=== PATIENT | female | born 2000 | race Caucasian/White ===

== ENCOUNTER 2020-08-11 15:49 | Observation (INO) | payer MEDICAID ==
[~2020-08-11] VITALS: Ht 162.6 cm; Wt 100.5 kg
--- NOTE | 2020-08-11 15:45 | NUR ---
REPORT FROM [facility] AT [facility] GIVEN. ALL QUESTIONS ANSWERED. INFORMATION PASSED ON TO BOBBIN SORTER.
[2020-08-11] MEDS ORDERED: ZOLOFT 100MG100 MG PO (16:40)
[2020-08-11] MEDS ORDERED: ALEVE 220MG220 MG PO (16:41)
[2020-08-11] MEDS ORDERED: PREDNISONE10 MG PO (16:41)
[2020-08-11 16:58] VITALS: BP 118/72; PULSE 55; TEMP 98.1
[2020-08-11] MEDS ORDERED: PYRIDIUM 100MG100 MG PO (17:52)
[2020-08-11] MEDS ORDERED: NORCO 325 MG-51 TAB PO (17:53)
[2020-08-11 18:42] VITALS: BP 112/51; PULSE 56
--- NOTE | 2020-08-11 18:42 | NUR ---
Received patient from OR. She is alert and oriented. Vital signs stable. She denies pain. Informed patient we will monitor her vital signs every 15 minutes. Will check orders for her diet.
[2020-08-11 19:05] VITALS: BP 102/46; PULSE 53
--- NOTE | 2020-08-11 19:28 | NUR ---
Patient was able to void. She said she felt a bit of pain while voiding and informed her it's normal. [place] box and water given.
[2020-08-11 19:35] VITALS: BP 107/65; PULSE 53
[2020-08-11 20:26] VITALS: BP 101/65; PULSE 65; TEMP 98.1
--- NOTE | 2020-08-11 20:33 | NUR ---
Patient was able to tolerate her food and water. She denies pain aside from burning when she void awhile ago. Discharge instructions given. INT removed. Patient will be picked up by her friend. Swapna CHIU accompanied patient via wheelchair for discharge.
== END 2020-08-11 20:34 | disposition home or self-care (01) ==
LOC: SDCO 15:49 → INPTSU 17:34 → MEDICAL 18:30
PROVIDERS: ADMIT Urology
DX: N13.2 Hydronephrosis with renal and ureteral calculous obstruction (principal); F17.210 Nicotine dependence, cigarettes, uncomplicated; Z20.822 Contact with and (suspected) exposure to COVID-19
CPT/HCPCS: C1769; C2617; J0690; J2405; J2704; J3010; J7120

== ENCOUNTER 2020-08-14 18:21 | Emergency (ER) | payer MEDICAID ==
[~2020-08-14] VITALS: Ht 162.6 cm; Wt 100.5 kg
[~2020-08-14 18:21] MED LIST: ALEVE 220MG220 MG PO; NORCO 325 MG-51 TAB PO; PREDNISONE10 MG PO; PYRIDIUM 100MG100 MG PO; ZOLOFT 100MG100 MG PO
[2020-08-14 18:55] VITALS: TEMP 98
[2020-08-14 19:02] LABS: COLLECTION METHOD CLEAN CATCH
[2020-08-14 19:12] LABS: BUDDING YEAST Present /hpf; PH 6 (5-8); SQUAMOUS EPITHELIAL None Seen /hpf; URINE APPEARANCE Cloudy; URINE BACTERIA Rare /hpf; URINE BILIRUBIN Negative (NEGATIVE); URINE BLOOD 3+ (NEGATIVE); URINE COLOR Red; URINE GLUCOSE Negative (NEGATIVE); URINE KETONE Negative (NEGATIVE); URINE LEUKOCYTE ESTERASE 2+ (NEGATIVE); URINE NITRATE Negative (NEGATIVE); URINE PROTEIN(semi-quant) 2+ (NEGATIVE); URINE RBC >50 /hpf; URINE UROBILINOGEN Negative (NEGATIVE)
[2020-08-14 19:36] LABS: BASO # 0.1 (0.0-0.2); BASO % 0.4 % (0.0-2.0); EOS # 0.1 (0.0-0.7); GRAN # 8.2 (1.4-6.5); GRAN % 65.2 % (42.2-75.2); HEMATOCRIT 44.3 % (37.0-47.0); HEMOGLOBIN 14.6 g/dl (12.5-16.0); LYMPH # 3.4 (1.2-3.4); MEAN CELL VOLUME 84 fl (80.0-100.0); MEAN CORPUSCULAR HEMOGLOBIN 28 pg (27.0-31.0); MEAN CORPUSCULAR HGB CONC 33 g/dl (33.0-37.0); MEAN PLATELET VOLUME 10.6 fl (7.4-10.4); MONO # 0.7 (0.1-0.6); MONO % 5.8 % (1.7-9.3); PLATELET COUNT 294 K/mm3 (130-400); RED BLOOD COUNT 5.27 M/mm3 (4.10-5.30); REDCELL DISTRIBUTION WIDTH-CV 14.4 % (11.5-14.5)
[2020-08-14 19:49] LABS: BILIRUBIN,TOTAL 0.5 mg/dL (0.0-1.0); C-REACTIVE PROTEIN 1.2 mg/dL (0.0-0.9); CALCIUM 8.9 mg/dL (8.4-10.2); CREATININE, serum 0.59 (0.52-1.25); TOTAL PROTEIN 7.3 gm/dL (6.4-8.2)
[2020-08-14] MEDS ORDERED: CEFTIN500 MG PO (19:54)
[2020-08-14 20:51] VITALS: BP 123/68; PULSE 72
== END 2020-08-14 20:55 | disposition home or self-care (01) ==
LOC: COL.ER 18:21
PROVIDERS: Emergency Medicine
DX: N39.0 Urinary tract infection, site not specified (principal); F32.9 Major depressive disorder, single episode, unspecified; Z96.0 Presence of urogenital implants; Z87.442 Personal history of urinary calculi; Z79.899 Other long term (current) drug therapy
CPT/HCPCS: J0696; J7030